=== PATIENT | female | born 1980 | race Caucasian/White ===

== ENCOUNTER 2018-10-31 02:23 | Emergency (ER) | payer OTHER ==
--- NOTE | 2018-10-31 02:32 | ED ---
Psych HPI - General Stated Complaint: Mental health Time Seen by Provider: 10/31/18 02:28 - History of Present Illness Initial Comments: Yadira is a pleasant 37-year-old female is brought to the emergency department today by PD for evaluation of occult intoxication and depression. Apparently they were contacted by the patient's friends after she became very agitated and made superficial cuts to her left wrist. Patient reports that she doesn't frequently drink alcohol but she is on a girls weekend she drank multiple bottles of wine, in addition she had taken Benadryl due to a dairy ALLERGY. Patient reports that she began feeling very overwhelmed and depressed. She states that she got very sad about her dad's and she must of scratched her left wrist. Patient states that she doesn't even recall doing this. Patient states that the people she was with were close friends and she feels like if she had been with) they would've been able to calm her down and this never happened. Patient states that she wants her children and her and would never want to hurt herself or leave him. Patient states she's never had any suicidal attempts or thoughts in the past. She states that she just thinks she got upset but was never suicidal. - Related Data Allergies Allergy/AdvReac Type Severity Reaction Status Date / Time gluten Allergy Unknown Verified 10/31/18 02:54 Milk Containing Products Allergy Unknown Verified 10/31/18 02:54 [Dairy] wheat Allergy Unknown Verified 10/31/18 02:54 Review of Systems ROS Statement: Those systems with pertinent positive or pertinent negative responses have been documented in the HPI. ROS Other: All systems not noted in ROS Statement are negative. General Exam - General Exam Comments Initial Comments: Physical Exam GENERAL: Patient is well-developed and well-nourished. Patient is nontoxic and well-hydrated and is in no distress. HENT: Normocephalic, Atraumatic. EYES: PERRL, EOMI PULMONARY: Unlabored respirations. No audible rales rhonchi or wheezing was noted. CARDIOVASCULAR: There is a regular rate and rhythm without any murmurs gallops or rubs. ABDOMEN: Soft and nontender with normal bowel sounds. SKIN: Superficial abrasions to left wrist no active bleeding : Deferred NEUROLOGIC: Patient is alert and oriented x3. Slurred speech consistent with alcohol intoxication Moving all extremities spontaneously, normal gait MUSCULOSKELETAL: Normal extremities with adequate strength and full range of motion. No lower extremity swelling or edema. No calf tenderness. PSYCHIATRIC: Anxious, apologetic, denies suicidal or homicidal ideations Course Vital Signs 10/31/18 10/31/18 02:50 04:11 Temperature 97.6 F Pulse Rate 107 H 119 H Respiratory 18 16 Rate Blood Pressure 127/86 127/97 O2 Sat by Pulse 97 98 Oximetry Medical Decision Making - Medical Decision Making The patient was seen and evaluated history is obtained from Alfonso lopez, patient and at bedside Patient was intoxicated she made some superficial scratches to her left wrist she had apparently made some suicidal statements she does not recall. Patient adamantly denying any suicidal thoughts at this time. She is apologetic and upset. Patient was determined to be sober at 3:45 AM and was evaluated by the emergency psychiatric services nurse who discussed case with attending physician who agreed the patient is stable for discharge home. Patient was advised to abstain from alcohol and follow up for outpatient therapy for grief and depression. TDaP was ordered prior to discharge - Lab Data Lab Results 10/31/18 10/31/18 Range/Units 04:34 04:34 Urine HCG, Qual Not Detected (Not Detectd) Urine Opiates Screen Not Detected (NotDetected) Ur Oxycodone Screen Not Detected (NotDetected) Urine Methadone Screen Not Detected (NotDetected) Ur Propoxyphene Screen Not Detected (NotDetected) Ur Barbiturates Screen Not Detected (NotDetected) U Tricyclic Antidepress Not Detected (NotDetected) Ur Phencyclidine Scrn Not Detected (NotDetected) Ur Amphetamines Screen Not Detected (NotDetected) U Methamphetamines Scrn Not Detected (NotDetected) U Benzodiazepines Scrn Not Detected (NotDetected) Urine Cocaine Screen Not Detected (NotDetected) U Marijuana (THC) Screen Not Detected (NotDetected) Disposition Clinical Impression: Grief, Alcohol intoxication Disposition: HOME SELF-CARE Condition: Stable Instructions (If sedation given, give patient instructions): Depression (DC) Is patient prescribed a controlled substance at d/c from ED?: No Referrals: None,Stated [Primary Care Provider] - 1-2 days
[2018-10-31 02:53] VITALS: TEMP 97.6
[2018-10-31 04:15] VITALS: BP 127/97; PULSE 119; RESP 16
[2018-10-31 05:44] LABS: Amphetamine Screen,Urine Not Detected (NotDetected); Barbiturate Screen,Urine Not Detected (NotDetected); Benzodiazepines Screen,Urine Not Detected (NotDetected); Cocaine Screen,Urine Not Detected (NotDetected); Methadone Screen, Urine Not Detected (NotDetected); Opiate Screen,Urine Not Detected (NotDetected); Oxycodone Screen, Urine Not Detected (NotDetected); Phencyclidine Screen,Urine Not Detected (NotDetected); Tricyclic Antidepressant,Urine Not Detected (NotDetected); Urn Cannabinoid Scrn Not Detected (NotDetected)
[2018-10-31] MEDS ORDERED: DIPH,PERTUS(ACELL)TETVAC-LF 0.5 ML VIAL IM ONE (05:51)
== END 2018-10-31 06:14 | disposition home or self-care (01) ==
LOC: EC 02:23
DX: F43.21 Adjustment disorder with depressed mood (principal); F10.129 Alcohol abuse with intoxication, unspecified; S61.512A Laceration without foreign body of left wrist, initial encounter; Z91.018 Allergy to other foods; Z91.011 Allergy to milk products; Z23 Encounter for immunization; X78.9XXA Intentional self-harm by unspecified sharp object, initial encounter
CPT/HCPCS: 80306; 81025; 82075; 90471; 90715; 99285

== ENCOUNTER → 2021-02-26 | Outpatient (CLI) | payer BC ==
--- NOTE | 2021-02-28 10:42 | MM ---
Reason for exam: screening (asymptomatic). Baseline mammogram. History: Took hormonal contraceptives for 3 years beginning at age 20. Physical Findings: Nurse did not find any significant physical abnormalities on exam. MG Screening Mammo w CAD Bilateral CC and MLO view(s) were taken. There are scattered fibroglandular densities. There is no discrete abnormality. ASSESSMENT: Negative, BI-RAD 1 RECOMMENDATION: Routine screening mammogram of both breasts in 1 year.
== END | disposition home or self-care (01) ==
LOC: RADMAMWWP 14:21
PROVIDERS: ATTEND Obstetrics & Gynecology Obstetrics
DX: Z12.31 Encounter for screening mammogram for malignant neoplasm of breast (principal)
CPT/HCPCS: 77067

== ENCOUNTER → 2021-03-27 | Outpatient (CLI) | payer BC ==
[2021-03-27 11:25] LABS: Basophils % (A) 1 %; Eosinophils # (A) 0.1 k/uL (0-0.7); Eosinophils % (A) 2 %; HCT 45.2 % (34.0-46.0); HGB 15.8 gm/dL (11.4-16.0); Lymphocytes # (A) 1.5 k/uL (1.0-4.8); Lymphocytes % (A) 20 %; MCH 30.1 pg (25.0-35.0); MCHC 34.9 g/dL (31.0-37.0); MCV 86.3 fL (80.0-100.0); Mean Platelet Volume 9.4; Monocytes # (A) 0.3 k/uL (0-1.0); Monocytes % (A) 4 %; Neutrophils # (A) 5.5 k/uL (1.3-7.7); Neutrophils % (A) 73 %; Platelet Count 202 k/uL (150-450); RBC 5.23 m/uL (3.80-5.40); RDW 13.6 % (11.5-15.5); WBC 7.5 k/uL (3.8-10.6)
== END | disposition home or self-care (01) ==
LOC: LABPAT 10:16
PROVIDERS: ATTEND Obstetrics & Gynecology Obstetrics
DX: Z01.812 Encounter for preprocedural laboratory examination (principal); N92.0 Excessive and frequent menstruation with regular cycle; N89.0 Mild vaginal dysplasia
CPT/HCPCS: 85025

== ENCOUNTER 2021-04-12 07:24 | Day surgery (SDC) | payer BC ==
[2021-04-11 08:49] VITALS: BMI 30.9
[~2021-04-12 07:24] MED LIST: Pre Op ABX Message 1 EACH MISC MISCELLANE ONE
[2021-04-12] MEDS ORDERED: ONDANSETRON 4 MG/2 ML VIAL IVP ONE (07:33)
[2021-04-12] MEDS ORDERED: MIDAZOLAM 2 MG/2 ML VIAL IV PRN (07:33)
[2021-04-12] MEDS ORDERED: DEXAMETHASONE SOD PHOSPHATE 4 MG/ML 1 ML VIAL IV ONE (07:33)
[2021-04-12] MEDS ORDERED: SCOPOLAMINE 1.5MG/72HR PATCH TRANSDERM ONE (07:33)
[2021-04-12] MEDS ORDERED: LACTATED RINGERS 1,000 ML IV SCH (07:33)
[2021-04-12] MEDS ORDERED: LIDOCAINE 1% (10MG/ML) FOR IV START INTRADERMA ONE (08:26)
[2021-04-12] MEDS ORDERED: KETOROLAC 15 MG/ML 1 ML VIAL ONE (09:05)
[2021-04-12] MEDS ORDERED: PROPOFOL 10 MG/ML 20 ML VIAL IV ONE (09:05)
[2021-04-12] MEDS ORDERED: MIDAZOLAM 2 MG/2 ML VIAL ONE (09:05)
[2021-04-12] MEDS ORDERED: LIDOCAINE 1% INJ 10MG/ML (20 ML MDV) ONE (09:05)
[2021-04-12] MEDS ORDERED: fentaNYL (PF) 50 MCG/ML 2 ML AMP ONE (09:05)
[2021-04-12] MEDS ORDERED: LACTATED RINGERS 1,000 ML IV ONE ×4 (09:10→10:36)
--- NOTE | 2021-04-12 09:12 | P.HPOB ---
History of Present Illness H&P Date: 04/12/21 Chief Complaint: Menorrhagia, dysmenorrhea This is a 40-year-old 6 para 4024 that presents with complaints of heavy menstrual cycles. Patient states her menstrual cycles have been worsening over the last few years. Patient notes her menstrual cycles to be every 30 days lasting 7 days. Patient notes to extremely heavy days with severe dysmenorrhea. Patient desires treatment options. Patient states she is done with childbearing in addition. Ultrasound completed in the office revealed a normal-sized uterus at 9 cm. Review of Systems Constitutional: Denies chills, Denies fatigue, Denies fever Ears, nose, mouth and throat: Denies headache Cardiovascular: Denies leg edema Respiratory: Denies dyspnea Gastrointestinal: Denies constipation, Denies diarrhea, Denies nausea, Denies vomiting Genitourinary: Denies Past Medical History Past Medical History: Musculoskeletal Disorder Additional Past Medical History / Comment(s): vitamin deficiencies, sciatic pain, had covid 2 months ago History of Any Multi-Drug Resistant Organisms: None Reported Past Surgical History: Cholecystectomy, Hernia Repair Additional Past Surgical History / Comment(s): tummy tuck Past Anesthesia/Blood Transfusion Reactions: No Reported Reaction Additional Past Anesthesia/Blood Transfusion Reaction / Comment(s): slow to wake up after lap. cherie. Smoking Status: Former smoker - Past Family History Mother Family Medical History: No Reported History Medications and Allergies Home Medications Medication Instructions Recorded Confirmed Type HYDROcodone/APAP 5-325MG [[place] 1 tab PO Q6HR PRN 04/11/21 04/11/21 History 5-325] Ibuprofen [Motrin] 800 mg PO Q6H PRN 04/11/21 04/11/21 History Methylphenidate HCl 54 mg PO DAILY 04/11/21 04/11/21 History [Methylphenidate HCl ER] Allergies Allergy/AdvReac Type Severity Reaction Status Date / Time gluten Allergy Unknown Verified 04/12/21 08:07 Milk Containing Products Allergy Unknown Verified 04/12/21 08:07 [Dairy] wheat Allergy Unknown Verified 04/12/21 08:07 Exam Osteopathic Statement: *. No significant issues noted on an osteopathic structural exam other than those noted in the History and Physical/Consult. 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 Assessment and Plan (1) Menorrhagia Current Visit: Yes Status: Acute Code(s): N92.0 - EXCESSIVE AND FREQUENT MENSTRUATION WITH REGULAR CYCLE SNOMED Code(s): 374629484 (2) Dysmenorrhea Current Visit: Yes Status: Acute Code(s): N94.6 - DYSMENORRHEA, UNSPECIFIED SNOMED Code(s): 994795447 Plan: 40-year-old female with complaints of menorrhagia and dysmenorrhea. Patient elects hysteroscopy, dilation curettage with endometrial ablation after counseling. Patient states she is done with childbearing. Patient is counseled on endometrial ablation with NovaSure. Risks are reviewed along with failure rates. Patient states understanding and wishes to proceed.
[2021-04-12] MEDS ORDERED: SILVER NITRATE APPLICATOR 1 EACH STICK..EA. TOPICAL ONE (09:35)
--- NOTE | 2021-04-12 09:53 | P.OP ---
Date of Procedure: 04/12/21 Preoperative Diagnosis: Menorrhagia, dysmenorrhea Postoperative Diagnosis: Same Procedure(s) Performed: Hysteroscopy, dilation and curettage and endometrial ablation Anesthesia: HOMERA Surgeon: Jewell Lujan Estimated Blood Loss (ml): 5 IV fluids (ml): 200 Urine output (ml): 400 Pathology: other (Endometrial curettings) Condition: stable Disposition: PACU Indications for Procedure: Menorrhagia, endometrial polyp Operative Findings: Proliferative endometrium Description of Procedure: Patient was taken back to the operating suite where general anesthesia was obtained without difficulty by the anesthesia department. She is prepped and draped in the normal sterile fashion in the dorsal lithotomy position. A red rubber catheter was used to drain the bladder clear yellow urine. A weighted speculum posterior vaginal vault, the anterior lip of the cervix was visualized and grasped with single-tooth tenaculum. Endocervical canal was then serially dilated. Hysteroscope was placed through the cervix toward the endometrial cavity. An intact cavity was appreciated, proliferative endometrium was appreciated. Pictures were taken and the hysteroscope was removed. Sharp curettage was then performed until gritty texture was noted in all 4 quadrants of the interior cavity. The specimens and sent to pathology for analysis. The NovaSure device was then opened and set the appropriate measurements for this patient's cavity. A length of 5, width of 3.3, power of 91, for total cycle length of 64 seconds. After the cavity assessment was completed the cycle was allowed to complete. After the cycle was complete the NovaSure device was removed without difficulty. The single-tooth tenaculum was taken off of the anterior lip of the cervix hemostasis was appreciated. All instruments were removed from the patient's vaginal vault. All counts were noted to be correct 2 at the end of the procedure. Patient tolerated procedure well and was taken to the recovery room awake in stable condition.
[2021-04-12] MEDS: HYDROmorphone 0.5 MG/0.5 ML SYRINGE IVP PRN ×3 (09:58→10:09)
[2021-04-12 11:09] VITALS: TEMP 98.4
[2021-04-12 11:41] VITALS: BP 132/88; PULSE 71; RESP 18
== END 2021-04-12 12:04 | disposition home or self-care (01) ==
LOC: OR 07:24
PROVIDERS: ATTEND Obstetrics & Gynecology Obstetrics
DX: N92.0 Excessive and frequent menstruation with regular cycle (principal); N84.0 Polyp of corpus uteri
CPT/HCPCS: 58558; 81025; 88305; J2250; J1100; J2405; J2001; J3010; J1885; J2704; J1170

== ENCOUNTER → 2023-12-03 | Outpatient (CLI) | payer BC ==
--- NOTE | 2023-12-03 23:34 | XR ---
EXAMINATION TYPE: XR hand complete RT DATE OF EXAM: 12/03/2023 COMPARISON: None HISTORY: Pain first metacarpal TECHNIQUE: 3 view right hand FINDINGS: No acute fracture or dislocation is evident. Joint spaces are preserved. Soft tissues appea r normal. Follow up exams can be performed 7-10 days from acute trauma for continued pain. IMPRESSION: 1. No acute osseous abnormalities right hand.
== END | disposition home or self-care (01) ==
LOC: RADXRYALE 08:58
PROVIDERS: ATTEND Physician Assistant
DX: M79.641 Pain in right hand (principal)

== ENCOUNTER → 2024-03-30 | Outpatient (CLI) | payer BC ==
--- NOTE | 2024-03-30 11:28 | CA ---
Exercise Stress Test Report Name: Yadira Duncan Exam Date: 03/30/2024 08:59 Exam Location: [facility] Stress Ht (in): 64 Wt (lb): 170 BSA: 1.83 Ordering Phys: Romaine Sharpe DO Referring Phys: Nena Rehman PAC Technologist: John Gabriel Age: 43 Gender: F : 1980 Procedure CPT: Indications: R07.9 CHEST PAIN ICD-10 Codes: Patient History: Medications: VIT D, ADIVAN, MOTRIN 800, NORVASC Meds past 24 hrs: Pretest Chest Pain: STRESS TEST Romero Protocol Exercise Duration (min:sec): 09:[address] Depressions (mm): Angina Score: Chan Score: Resting HR (bpm): 82 Peak HR (bpm): 178 Resting BP (mmHg): 141 / 94 Peak BP (mmHg): 166 / 92 MPHR: 177 Target HR: 150 % MPHR: 101 METS: 11.5 Total Dose: Peak Dose: Atropine: Double Product: 56114 BP Response: Stress Termination: Reached target heart rate Stress Symptoms: SLIGHT CHEST PAIN AT ABOUT A "5". CHEST PAIN SUBSIDED AFTER RESTING Stress Summary: ECG ANALYSIS Resting ECG: Normal sinus rhythm normal axis normal intervals Stress ECG: Patient exercised on Romero protocol for 9 minutes and 49 seconds achieving 11 metastases 85% of predicted maximal heart rate . She complained of chest discomfort at peak exercise. There was [address] segment depression noted in inferolateral leads. CONCLUSIONS Good exercise tolerance Abnormal stress test by EKG criteria Dr. Omari Painter MD (Electronically Signed) Final Date: 30 March 2024 11:27
== END | disposition home or self-care (01) ==
LOC: RADNMMAIN 08:32
PROVIDERS: ATTEND Family Medicine
DX: R94.39 Abnormal result of other cardiovascular function study (principal); R07.89 Other chest pain
CPT/HCPCS: 93017